=== PATIENT | male | born 1960 | race Asian ===

== ENCOUNTER → 2016-09-01 | Outpatient (CLI) | payer MEDICAID | LOC: OD 12:57 | PROVIDERS: ATTEND Family Medicine | DX: M54.5 Low back pain (principal); M47.897 Other spondylosis, lumbosacral region | CPT/HCPCS: 72110 ==

== ENCOUNTER 2016-09-16 19:35 | Emergency (ER) | payer MEDICAID ==
[2016-09-16] MEDS ORDERED: ASPIRIN 81 MG TABLET, CHEWABLE PO ONE (19:45)
--- NOTE | 2016-09-16 19:45 | ER Document Report ---
ED Respiratory Problem - General Time seen by provider: 19:35 Mode of Arrival: Medic Information source: Patient, Friend, Emergency Med Personnel TRAVEL OUTSIDE OF THE [place] IN LAST 30 DAYS: No - HPI Patient complains to provider of: Chest pain, Cough, Short of breath Onset: Other - see HPI note Associated symptoms: Chest pain/discomfort, Cough <TAMARA BOX - Last Filed: 09/16/16 21:26> <SANA BHATTI - Last Filed: 09/17/16 00:35> - General Stated Complaint: DIFFICULTY BREATHING Notes: Patient is a 55-year-old male presented emergency department with complaints of difficulty breathing. Patient was brought in via EMS states that the patient had chest pain earlier today but not time of EMS arrival. Patient ambulated to the vehicle located and then suddenly had some difficulty breathing. Patient also has a cough patient has a history of 2 myocardial infarctions with 1 stent and hypertension. The time of exam patient is tachycardic with a rate of 127. Patient denies any chest pain at time of exam. Patient is placed on BiPAP upon arrival. Patient has no known allergies. (TAMARA BOX) - Related Data Allergies/Adverse Reactions: No Known Allergies Allergy (Verified 09/16/16 21:05) Past Medical History - General Information source: Patient, Emergency Med Personnel - Social History Smoking Status: Unknown if Ever Smoked Family History: None - Past Medical History Cardiac Medical History: Reports: Hx Coronary Artery Disease, Hx Heart Attack - x2, 2007 2016, Hx Hypercholesterolemia, Hx Hypertension Pulmonary Medical History: Reports: Hx Bronchitis, Hx Pneumonia Endocrine Medical History: Reports: Hx Diabetes Mellitus Type 2 Past Surgical History: Reports: Hx Cardiac Catheterization - stent x1 2007, Other - bypass x1 2016 - Immunizations Hx Diphtheria, Pertussis, Tetanus Vaccination: No <TAMARA BOX - Last Filed: 09/16/16 21:26> Review of Systems - Review of Systems Constitutional: No symptoms reported EENT: No symptoms reported Cardiovascular: See HPI, Chest pain Respiratory: See HPI, Cough, Short of breath Gastrointestinal: No symptoms reported Genitourinary: No symptoms reported Male Genitourinary: No symptoms reported Musculoskeletal: No symptoms reported Skin: No symptoms reported Hematologic/Lymphatic: No symptoms reported Neurological/Psychological: No symptoms reported -: Yes All other systems reviewed and negative <TAMARA BOX - Last Filed: 09/16/16 21:26> Physical Exam - Vital signs Interpretation: Tachycardic, Hypoxic - General General appearance: Alert In distress: Moderate - HEENT Head: Normocephalic, Atraumatic Eyes: Normal Pupils: PERRL Mucous membranes: Moist - Respiratory Respiratory status: Respiratory distress Chest status: Nontender Breath sounds: Rales - Throughout - Cardiovascular Rhythm: Regular Heart sounds: Normal auscultation Murmur: No - Abdominal Inspection: Normal Distension: No distension Bowel sounds: Normal Tenderness: Nontender Organomegaly: No organomegaly - Back Back: Normal, Nontender - Extremities General upper extremity: Normal inspection, Normal ROM, Normal strength General lower extremity: Normal inspection, Normal ROM, Normal strength - Neurological Neuro grossly intact: Yes Cognition: Normal Orientation: AAOx4 [place] Coma Scale Eye Opening: Spontaneous [place] Coma Scale Verbal: Oriented [place] Coma Scale Motor: Obeys Commands [place] Coma Scale Total: 15 Speech: Normal - Psychological Associated symptoms: Normal affect, Normal mood - Skin Skin Temperature: Hot Skin Moisture: Diaphoretic Skin Color: Other - Cotto <TAMARA BOX - Last Filed: 09/16/16 21:26> Course - Laboratory Result Diagrams: 09/16/16 19:48 09/16/16 19:48 - Consults [facility] Time consulted: 20:46 [facility] Time consulted: 21:05 Consulted provider: will see as inpatient <TAMARA BOX - Last Filed: 09/16/16 21:26> - Laboratory Result Diagrams: 09/16/16 19:48 09/16/16 19:48 - Diagnostic Test Radiology reviewed: Reports reviewed - EKG Interpretation by [place] EKG shows normal: Sinus rhythm Rate: Tachycardia <SANA BHATTI - Last Filed: 09/17/16 00:35> - Re-evaluation Re-evalutation: 09/16/16 Patient is a 55-year-old male who comes in with difficulty breathing. Patient apparently had chest pain earlier today but adamantly denies chest pain in the emergency department. Patient is diaphoretic and cotto on presentation. Patient was started on nitroglycerin drip and BiPAP. His respiratory status is much improved. Patient is able to speak on BiPAP and his respirations are much easier. Patient was found to have an elevated troponin. Patient took aspirin today. Initially, patient states that he was taking Plavix but denies. Patient will be started on Lovenox. We are awaiting a bed at [facility]. Patient agrees with this plan. He has designated his sister as his health care proxy, Rosa. 09/17/16 00:34 Patient is resting comfortably on BiPAP. Patient is slightly hypotensive so nitroglycerin will be weaned off. Denies any chest pain or trouble breathing at this time. Patient is still awaiting a bed at [facility]. (SANA BHATTI) - Vital Signs Vital signs: Temp Pulse Resp BP Pulse Ox 98.2 F 19 139/98 H 100 09/16/16 19:36 09/16/16 23:57 09/16/16 22:45 09/16/16 23:57 (SANA BHATTI) - Laboratory Laboratory results interpreted by de: 09/16/16 09/16/16 09/16/16 19:48 19:48 19:48 WBC 19.8 H MCV 100 H RDW 17.8 H Abs Neuts (Manual) 12.3 H Abs Lymphs (Manual) 5.3 H Abs Monocytes (Manual) 2.0 H VBG pH BUN 21 H Creatinine 2.08 H Est GFR ( Amer) 40 L Est GFR (Non-Af Amer) 33 L Glucose 237 H Lactic Acid Total Bilirubin 1.5 H AST 106 H NT-Pro-B Natriuret Pep 8120 H 09/16/16 09/16/16 19:48 20:05 WBC MCV RDW Abs Neuts (Manual) Abs Lymphs (Manual) Abs Monocytes (Manual) VBG pH 7.18 L* BUN Creatinine Est GFR ( Amer) Est GFR (Non-Af Amer) Glucose Lactic Acid 7.4 H Total Bilirubin AST NT-Pro-B Natriuret Pep (SANA BHATTI) - Consults [facility] Reason for consultation: 09/16/16 20:46 Patient will be transferred to [facility]. (TAMARA BOX) [facility] Reason for consultation: 09/16/16 21:05 Cardiology at [place] accepts the patient to CCU. (TAMARA BOX) Critical Care Note - Critical Care Note Total time excluding time spent on procedures (mins): 60 - evaluation and management of to pulmonary edema, elevated troponin, coordination with cardiology at [facility], counseling of patient, multiple re-evaluations <SANA BHATTI - Last Filed: 09/17/16 00:35> Discharge <TAMARA BOX - Last Filed: 09/16/16 21:26> <SANA BHATTI - Last Filed: 09/17/16 00:35> - Discharge Clinical Impression: NSTEMI (non-ST elevated myocardial infarction), Respiratory distress Pulmonary edema Qualifiers: Chronicity: acute Qualified Code(s): J81.0 - Acute pulmonary edema Condition: Stable Disposition: [facility] Referrals: SABINA RUEDA MD [Primary Care Provider] - Follow up as needed Scribe Attestation: 09/17/16 00:35 I personally performed the services described in the documentation, reviewed and edited the documentation which was dictated to the scribe in my presence, and it accurately records my words and actions. (SANA BHATTI) Scribe Documentation - Scribe Written by Scribhaley:: Tamara Box 09/16/16 21:00 acting as scribe for :: Pedro <TAMARA BOX - Last Filed: 09/16/16 21:26>
[2016-09-16] MEDS ORDERED: NITROGLYCERIN/D5W 250 ML IV PRN (19:46)
[2016-09-16 20:01] LABS: HEMATOCRIT 45.1 % (37.9-51.0); HEMOGLOBIN 14.9 g/dL (13.5-17.0); HGB HCT DIFFERENCE -0.4; MEAN CORPUSCULAR HEMOGLOBIN 32.8 pg (27.0-33.4); MEAN CORPUSCULAR HGB CONC 32.9 g/dL (32.0-36.0); MEAN CORPUSCULAR VOLUME 100 fl (80-97); RED BLOOD COUNT 4.53 10^6/uL (4.35-5.55); RED CELL DISTRIBUTION WIDTH 17.8 % (11.5-14.0); WHITE BLOOD COUNT 19.8 10^3/uL (4.0-10.5)
[2016-09-16] MEDS ORDERED: MAGNESIUM SULFATE/D5W 1 GM/100 ML RTUPB IV ONE (20:12)
[2016-09-16 20:22] LABS: VENOUS BLOOD HCO3 21.1 mmol/L (20-32); VENOUS BLOOD PCO2 57.3 mmHg (35-63)
[2016-09-16 20:25] LABS: BASOPHILS % (MANUAL) 0 % (0-2); EOSINOPHILS % (MANUAL) 1 % (0-6); LYMPHOCYTES % (MANUAL) 27 % (13-45); TOTAL CELLS COUNTED 100
[2016-09-16 20:26] LABS: VENOUS BLOOD PH 7.18 (7.30-7.42)
[2016-09-16 20:27] LABS: ANISOCYTOSIS 1+; POLYCHROMASIA SLIGHT; TOXIC GRANULATION SLIGHT
[2016-09-16 20:29] LABS: ALANINE AMINOTRANSFERASE 35 U/L (21-72); ALBUMIN 3.9 g/dL (3.5-5.0); ALKALINE PHOSPHATASE 86 U/L (38-126); ANION GAP 18 (5-19); ASPARTATE AMINO TRANSFERASE 106 U/L (17-59); BILIRUBIN,TOTAL 1.5 mg/dL (0.2-1.3); BLOOD UREA NITROGEN 21 mg/dL (7-20); CARBON DIOXIDE 22 mmol/L (22-30); CHLORIDE 103 mmol/L (98-107); CREATINE KINASE 149 U/L (55-170); CREATININE RESULT 2.08 mg/dL (0.52-1.25); GLUCOSE 237 mg/dL (75-110); POTASSIUM 4.3 mmol/L (3.6-5.0); SODIUM 143.2 mmol/L (137-145)
[2016-09-16 20:39] LABS: CREATINE KINASE MB 1.79 ng/mL (<4.55)
[2016-09-16 20:50] LABS: TROPONIN I 0.305 ng/mL
[2016-09-16] MEDS ORDERED: FUROSEMIDE INJ/PF 40 MG/4 ML SDV IV ONE (21:09)
[2016-09-16] MEDS ORDERED: ENOXAPARIN SODIUM INJ 80 MG/0.8 ML DISP.SYRIN SUBCUT ONE (21:27)
[2016-09-16 21:54] LABS: PROTHROMBIN TIME 12.8 SEC (11.4-15.4)
[2016-09-16 22:03] LABS: PARTIAL THROMBOPLASTIN TIME 29.4 SEC (23.5-35.8)
[2016-09-16] MEDS ORDERED: ACETAMINOPHEN 325 MG TABLET PO ONE (22:19)
[2016-09-17 01:45] LABS: APPEARANCE,URINE CLEAR; BILIRUBIN,URINE NEGATIVE (NEGATIVE); GLUCOSE, URINE NEGATIVE (NEGATIVE); KETONES,URINE NEGATIVE (NEGATIVE); LEUKOCYTE ESTERASE,URINE NEGATIVE (NEGATIVE); NITRITE,URINE NEGATIVE (NEGATIVE); PROTEIN,URINE 100 mg/dL (NEGATIVE); URINE SPECIFIC GRAVITY 1.008; UROBILINOGEN,URINE NEGATIVE mg/dL (<2.0)
[2016-09-17] MEDS ORDERED: SIMVASTATIN 10 MG TABLET PO SCH (04:45)
[2016-09-17] MEDS ORDERED: CLOPIDOGREL BISULFATE 75 MG TABLET PO SCH (04:45)
[2016-09-17 05:35] LABS: HEMATOCRIT 37.1 % (37.9-51.0); HGB HCT DIFFERENCE 1.3; MEAN CORPUSCULAR HGB CONC 34.4 g/dL (32.0-36.0); RED BLOOD COUNT 3.87 10^6/uL (4.35-5.55); RED CELL DISTRIBUTION WIDTH 17.4 % (11.5-14.0); WHITE BLOOD COUNT 16.7 10^3/uL (4.0-10.5)
[2016-09-17 05:49] LABS: HEMOGLOBIN 12.8 g/dL (13.5-17.0); MEAN CORPUSCULAR VOLUME 96 fl (80-97)
[2016-09-17] MEDS: ENOXAPARIN SODIUM INJ 80 MG/0.8 ML DISP.SYRIN SUBCUT SCH ×2 (09:34→22:40)
[2016-09-17] MEDS ORDERED: ASPIRIN 325 MG TABLET PO SCH (10:00)
[2016-09-17 22:46] VITALS: BP 149/97
== END 2016-09-17 23:55 | disposition short-term general hospital (02) ==
LOC: ER 19:35
DX: I21.4 Non-ST elevation (NSTEMI) myocardial infarction (principal); J81.0 Acute pulmonary edema; R06.00 Dyspnea, unspecified; E78.00 Pure hypercholesterolemia, unspecified; I10 Essential (primary) hypertension; E11.9 Type 2 diabetes mellitus without complications; Z95.1 Presence of aortocoronary bypass graft; I25.2 Old myocardial infarction
CPT/HCPCS: 99291; 96372; 96375; 96365; 96366; 36415; 82553; 82550; 83605; 85025; 85027; 85610; 85730; 80053; 81001; 84484; 82803; 87804; 83880; 71010; 94660 ×2; J3490 ×3; J1940; J1650 ×2

== ENCOUNTER 2016-11-03 19:48 | Emergency (ER) | payer MEDICAID ==
[2016-11-03] MEDS ORDERED: IPRATROPIUM/ALBUTEROL 0.5-2.5 MG/3 ML AMPUL NEB ONE (20:45)
--- NOTE | 2016-11-03 20:45 | ER Document Report ---
ED Medical Screen (RME) - General Stated Complaint: DIFFICULTY BREATHING Notes: 56 yo male c/o coughing and difficulty breathing x 2 days. no fever. mostly dry. no chest pain. + sinus congestion. no n/v lungs with few wheezes bilat. Sat 94% + smoker TRAVEL OUTSIDE OF THE [place] IN LAST 30 DAYS: No - Related Data Allergies/Adverse Reactions: No Known Allergies Allergy (Verified 09/16/16 21:05) Past Medical History - Past Medical History Cardiac Medical History: Reports: Hx Coronary Artery Disease, Hx Heart Attack - x2, 2008 2016, Hx Hypercholesterolemia, Hx Hypertension Pulmonary Medical History: Reports: Hx Bronchitis, Hx Pneumonia Endocrine Medical History: Reports: Hx Diabetes Mellitus Type 2 Past Surgical History: Reports: Hx Cardiac Catheterization - stent x1 2007, Other - bypass x1 2016 - Immunizations Hx Diphtheria, Pertussis, Tetanus Vaccination: No Physical Exam - Vital signs Vitals: Temp Pulse Resp BP Pulse Ox 98.8 F 99 16 127/89 H 96 11/03/16 20:19 11/03/16 20:19 11/03/16 20:19 11/03/16 20:19 11/03/16 20:19 Course - Vital Signs Vital signs: Temp Pulse Resp BP Pulse Ox 98.8 F 99 16 127/89 H 96 11/03/16 20:19 11/03/16 20:19 11/03/16 20:19 11/03/16 20:19 11/03/16 20:19
[2016-11-03 21:10] LABS: ABSOLUTE BASOPHILS # (AUTO) 0.1 10^3/uL (0.0-0.2); ABSOLUTE EOSINOPHILS # (AUTO) 0.2 10^3/uL (0.0-0.6); ABSOLUTE LYMPHOCYTES (AUTO) 1.4 10^3/uL (0.5-4.7); ABSOLUTE MONOCYTES (AUTO) 0.6 10^3/uL (0.1-1.4); ABSOLUTE NEUT (AUTO) 8.6 10^3/uL (1.7-8.2); BASOPHILS % (AUTO) 0.7 % (0-2); EOSINOPHILS % (AUTO) 1.7 % (0-6); HEMATOCRIT 37.3 % (37.9-51.0); HEMOGLOBIN 13.5 g/dL (13.5-17.0); HGB HCT DIFFERENCE 3.2; LYMPHOCYTES % (AUTO) 13.1 % (13-45); MEAN CORPUSCULAR HEMOGLOBIN 34.7 pg (27.0-33.4); MEAN CORPUSCULAR HGB CONC 36.2 g/dL (32.0-36.0); MEAN CORPUSCULAR VOLUME 96 fl (80-97); MONOCYTES % (AUTO) 5.2 % (3-13); RED BLOOD COUNT 3.89 10^6/uL (4.35-5.55); RED CELL DISTRIBUTION WIDTH 18.3 % (11.5-14.0); SEGMENTED NEUTROPHILS % (AUTO) 79.3 % (42-78); WHITE BLOOD COUNT 10.9 10^3/uL (4.0-10.5)
[2016-11-03 21:23] LABS: ALANINE AMINOTRANSFERASE 23 U/L (21-72); ALBUMIN 3.9 g/dL (3.5-5.0); ALKALINE PHOSPHATASE 79 U/L (38-126); ANION GAP 10 (5-19); ASPARTATE AMINO TRANSFERASE 40 U/L (17-59); BILIRUBIN,DIRECT 0.3 mg/dL (0.0-0.4); BILIRUBIN,TOTAL 1.1 mg/dL (0.2-1.3); BLOOD UREA NITROGEN 19 mg/dL (7-20); CALCIUM 9.3 mg/dL (8.4-10.2); CARBON DIOXIDE 26 mmol/L (22-30); CHLORIDE 107 mmol/L (98-107); CREATININE RESULT 1.56 mg/dL (0.52-1.25); GLUCOSE 129 mg/dL (75-110); POTASSIUM 4.2 mmol/L (3.6-5.0); SODIUM 143.4 mmol/L (137-145); TOTAL PROTEIN 6.9 g/dL (6.3-8.2)
--- NOTE | 2016-11-04 00:08 | ER Document Report ---
ED Respiratory Problem - General Time seen by provider: 00:05 Mode of Arrival: Ambulatory Information source: Patient TRAVEL OUTSIDE OF THE [place] IN LAST 30 DAYS: No - HPI Patient complains to provider of: Cough, Short of breath Onset: Other - see HPI note Duration: Better Quality of pain: No pain Context: denies: Hx asthma, Hx CHF Associated symptoms: Congestion, Cough, Short of breath, Wheezing Similar symptoms previously: No Recently seen / treated by doctor: No <TAMARA YU - Last Filed: 11/04/16 06:45> <TRACY MERA - Last Filed: 11/09/16 21:08> - General Chief Complaint: Breathing Difficulty Stated Complaint: DIFFICULTY BREATHING Notes: Patient is a 56-year-old male presenting emergency department for difficulty breathing. Patient states difficulty breathing started yesterday. Patient denies any asthma or COPD. Patient is a smoker and has a history of bronchitis. Patient has been evaluated emergency department before for his difficulty breathing. Patient does report sinus rhinorrhea and cough. Patient' s primary care physician at the [facility]; patient will see them again on 11/19/2016. Patient is not taking any seasonal allergy medications. Patient has no known allergies. (TAMARA YU) - Related Data Allergies/Adverse Reactions: No Known Allergies Allergy (Verified 09/16/16 21:05) Past Medical History - General Information source: Patient - Social History Smoking Status: Current Every Day Smoker Chew tobacco use (# tins/day): No Frequency of alcohol use: None Drug Abuse: None Family History: None Patient has suicidal ideation: No Patient has homicidal ideation: No - Past Medical History Cardiac Medical History: Reports: Hx Coronary Artery Disease, Hx Heart Attack - x2, 2007 2016, Hx Hypercholesterolemia, Hx Hypertension Pulmonary Medical History: Reports: Hx Bronchitis, Hx Pneumonia Endocrine Medical History: Reports: Hx Diabetes Mellitus Type 2 Past Surgical History: Reports: Hx Cardiac Catheterization - stent x1 2007, Other - bypass x1 2016 - Immunizations Hx Diphtheria, Pertussis, Tetanus Vaccination: No <TAMARA YU - Last Filed: 11/04/16 06:45> Review of Systems - Review of Systems Constitutional: No symptoms reported EENT: See HPI, Nose congestion Cardiovascular: No symptoms reported Respiratory: See HPI, Cough, Short of breath, Wheezing Gastrointestinal: No symptoms reported Genitourinary: No symptoms reported Male Genitourinary: No symptoms reported Musculoskeletal: No symptoms reported Skin: No symptoms reported Hematologic/Lymphatic: No symptoms reported Neurological/Psychological: No symptoms reported -: Yes All other systems reviewed and negative <TAMARA YU - Last Filed: 11/04/16 06:45> Physical Exam - Vital signs Interpretation: Normal - General General appearance: Appears well, Alert In distress: Mild - HEENT Head: Normocephalic, Atraumatic, Other - No facial tenderness or signs of acute sinusitis Eyes: Normal Pupils: PERRL Sinus: Normal Mucous membranes: Moist - Respiratory Respiratory status: No respiratory distress Chest status: Nontender Breath sounds: Wheezing - Mild expiratory wheeze. No: Rales, Rhonchi Chest palpation: Normal - Cardiovascular Rhythm: Regular Heart sounds: Normal auscultation Murmur: No - Abdominal Inspection: Normal Distension: No distension Bowel sounds: Normal Tenderness: Nontender Organomegaly: No organomegaly - Back Back: Normal, Nontender - Extremities General upper extremity: Normal inspection, Normal ROM, Normal strength General lower extremity: Normal inspection, Normal ROM, Normal strength. No: Edema - Neurological Neuro grossly intact: Yes Cognition: Normal Orientation: AAOx4 [place] Coma Scale Eye Opening: Spontaneous [place] Coma Scale Verbal: Oriented [place] Coma Scale Motor: Obeys Commands [place] Coma Scale Total: 15 Speech: Normal - Psychological Associated symptoms: Normal affect, Normal mood - Skin Skin Temperature: Warm Skin Moisture: Dry <TAMARA YU - Last Filed: 11/04/16 06:45> Course - Laboratory Result Diagrams: 11/03/16 20:55 11/03/16 20:55 <KALEIGHSUJITTAMARA - Last Filed: 11/04/16 06:45> - Laboratory Result Diagrams: 11/03/16 20:55 11/03/16 20:55 <TRACY MERA - Last Filed: 11/09/16 21:08> - Re-evaluation Re-evalutation: 11/04/16 00:14 I personally performed the services described in the documentation, reviewed and edited the documentation which was dictated to my scribe in my presence, and it accurately records my words and actions. Patient with history of COPD smoking presents with intermittent cough and sinus congestion says short of breath but it's more nasal congestion. He is not hypoxic on examination not hypertensive and is afebrile. He is in no respiratory distress does have some nasal congestion but no facial tenderness or concerns for acute sinusitis. No nuchal rigidity HEENT exam is normal mild expiratory wheezes no rales or rhonchi no or show me edema calf tenderness or swelling. Chest x-ray is negative and give him albuterol inhaler to go home with discharge him on prednisone discussed stopping smoking and follow primary care physician in 2-3 days and discussed reasons for ED return sooner (TRACY MERA) - Vital Signs Vital signs: Temp Pulse Resp BP Pulse Ox 98.8 F 94 18 152/101 H 97 11/03/16 20:19 11/04/16 01:45 11/04/16 01:45 11/04/16 01:45 11/04/16 01:45 - Laboratory Laboratory results interpreted by me: 11/03/16 11/03/16 20:55 20:55 WBC 10.9 H RBC 3.89 L Hct 37.3 L MCH 34.7 H MCHC 36.2 H RDW 18.3 H Seg Neutrophils % 79.3 H Absolute Neutrophils 8.6 H Creatinine 1.56 H Est GFR ( Amer) 56 L Est GFR (Non-Af Amer) 46 L Glucose 129 H Discharge <TAMARA YU - Last Filed: 11/04/16 06:45> <TRACY MERA - Last Filed: 11/09/16 21:08> - Discharge Clinical Impression: Tobacco abuse Acute bronchitis Qualifiers: Bronchitis organism: unspecified organism Qualified Code(s): J20.9 - Acute bronchitis, unspecified Condition: Stable Disposition: HOME, SELF-CARE Additional Instructions: Bronchitis You have acute bronchitis. This disease is an infection or inflammation of the air passageways in your lungs. Symptoms usually include cough, low grade fever, shortness of breath, and wheezing. The cough usually persists for a couple of weeks. Most cases of bronchitis get better without antibiotics. We prescribe antibiotics when we believe bacteria are damaging your airways, or if there's high risk the bronchitis will worsen into pneumonia. Increase your fluid intake. A cool mist humidifier may make your lungs more comfortable. An expectorant (cough medicine that loosens phlegm) can help. If you smoke, STOP!!! Recovery from bronchitis can be somewhat slow, but you should see improvement within a day or two. Repeated episodes of bronchitis may result in lung damage -- for example, chronic bronchitis, recurrent pneumonias, or emphysema. Call the doctor if you develop increasing fever, shortness of breath, chest pain, bloody sputum, or otherwise worsen. If you have not improved at all after several days, contact the physician. Prescriptions: Prednisone [Deltasone 20 mg Tablet] 3 tab PO DAILY 5 Days Forms: Smoking Cessation Education, Elevated Blood Pressure Referrals: [facility] [Provider Group] - Follow up in 3-5 days (Follow-up in the next 3-4 days stop smoking return for increasing worsening or new symptoms) Scribe Documentation - Scribe Written by Scralvarado:: Tamara Yu 11/04/16 06:00 acting as scribe for :: Alex <TAMARA YU - Last Filed: 11/04/16 06:45>
[2016-11-04] MEDS ORDERED: ALBUTEROL SULFATE HFA (90 MCG/PUFF) 8 GM MDI (1 MDI/ER DISP) IH PRN (00:13)
[2016-11-04 02:25] VITALS: BP 152/101
== END 2016-11-04 01:45 | disposition home or self-care (01) ==
LOC: ER 19:48
DX: J20.9 Acute bronchitis, unspecified (principal); R06.02 Shortness of breath; R06.2 Wheezing; R05 Cough; J34.89 Other specified disorders of nose and nasal sinuses; R09.81 Nasal congestion; F17.200 Nicotine dependence, unspecified, uncomplicated; I25.10 Atherosclerotic heart disease of native coronary artery without angina pectoris; I25.2 Old myocardial infarction; I10 Essential (primary) hypertension; E11.9 Type 2 diabetes mellitus without complications; Z95.1 Presence of aortocoronary bypass graft; Z98.61 Coronary angioplasty status
CPT/HCPCS: 94640; 99285; 36415; 85025; 80053; 71020; J3490; J7620